=== PATIENT | female | born 1980 | race Caucasian/White ===

== ENCOUNTER 2016-11-05 07:22 | Emergency (ER) | payer OTHER ==
[2016-11-05] MEDS ORDERED: Ondansetron 4 MG/2 ML SDV IVPUSH ONE (07:47)
[2016-11-05] MEDS ORDERED: HYDROmorphone 2 MG/ML Syringe IVPUSH ONE (07:47)
[2016-11-05] MEDS ORDERED: Sodium Chloride 0.9% 10 ML Syringe FLUSH PRN (07:47)
[2016-11-05] MEDS ORDERED: Sodium Chloride 0.9% 2.5 ML Syringe FLUSH PRN (07:47)
[2016-11-05] MEDS ORDERED: Ketorolac 30 MG/ML SDV IVPUSH ONE (07:47)
[2016-11-05] MEDS ORDERED: HYDROmorphone 1 MG/ML Syringe ONE (07:53)
--- NOTE | 2016-11-05 08:03 | EDM.PDOC ---
ED HPI GENERAL MEDICAL PROBLEM - General Chief Complaint: Back Pain or Injury Stated Complaint: LOWER BACK PAIN Time Seen by Provider: 11/05/16 07:40 - History of Present Illness INITIAL COMMENTS - FREE TEXT/NARRATIVE: HISTORY AND PHYSICAL: History of present illness: Patient 36-year-old female translates her acute low back pain that occurred when she was working out yesterday this is confined to her lower back worse with movement she denies numbness weakness incontinence or retention of bowel or bladder she has not had prior episodes. Review of systems: As per history of present illness and below otherwise all systems reviewed and negative. Past medical history: As per history of present illness and as reviewed below otherwise noncontributory. Surgical history: As per history of present illness and as reviewed below otherwise noncontributory. Social history: No reported history of drug or alcohol abuse. Family history: As per history of present illness and as reviewed below otherwise noncontributory. Physical exam: HEENT: Atraumatic, normocephalic, pupils reactive, negative for conjunctival pallor or scleral icterus, mucous membranes moist, throat clear, neck supple, nontender, trachea midline. Lungs: Clear to auscultation, breath sounds equal bilaterally, chest nontender. Heart: S1S2, regular, negative for clicks, rubs, or JVD. Abdomen: Soft, nondistended, nontender. Negative for masses or hepatosplenomegaly. Negative for costovertebral tenderness. Pelvis: Stable nontender. Genitourinary: Deferred. Rectal: Deferred. Extremities: Atraumatic, negative for cords or calf pain. Neurovascular unremarkable. Neuro: Awake, alert, oriented. Cranial nerves II through XII unremarkable. Cerebellum unremarkable. Motor and sensory unremarkable throughout. Exam nonfocal. Back: Patient has tenderness to palpation in the paraspinal region and lumbosacral spine with some spasm also noted there is no vertebral body or point tenderness patient is able to stand on her toes back on her heels deep tendon reflexes motor and sensory are normal Diagnostics: None Therapeutics: Dilaudid 1 mg IV Zofran 4 mg IV Toradol 30 mg IV Impression: #1 acute lumbosacral strain Definitive disposition and diagnosis as appropriate pending reevaluation and review of above. lower back Pain Score (Numeric/FACES): 7 - Related Data Allergies Allergy/AdvReac Type Severity Reaction Status Date / Time No Known Allergies Allergy Verified 11/05/16 07:29 Home Meds: Home Meds medroxyPROGESTERone Acetate [Medroxyprogesterone Acetate] 150 injection IM ASDIRECTED 11/05/16 [History] Past Medical History HEENT History: Reports: None Cardiovascular History: Reports: None Respiratory History: Reports: None Gastrointestinal History: Reports: None Genitourinary History: Reports: None CHICK GRADER History: Reports: None Musculoskeletal History: Reports: None Neurological History: Reports: None Psychiatric History: Reports: Anxiety Endocrine/Metabolic History: Reports: None Hematologic History: Reports: None Immunologic History: Reports: None Oncologic (Cancer) History: Reports: None Dermatologic History: Reports: None - Infectious Disease History Infectious Disease History: Reports: None - Past Surgical History Female Surgical History: Reports: Breast Reconstruction Social & Family History - Family History Family Medical History: Noncontributory - Tobacco Use Smoking Status *Q: Never Smoker - Caffeine Use Caffeine Use: Reports: Coffee - Recreational Drug Use Recreational Drug Use: No ED ROS GENERAL - Review of Systems Review Of Systems: ROS reveals no pertinent complaints other than HPI. ED EXAM, GENERAL - Physical Exam Exam: See Below (See dictation) Course - Vital Signs Last Recorded V/S: Last Vital Signs Temp 36.1 C 11/05/16 07:30 Pulse 72 11/05/16 07:30 Resp 16 11/05/16 07:30 BP 137/84 11/05/16 07:30 Pulse Ox 98 11/05/16 07:30 - Orders/Labs/Meds Orders: Active Orders 24 hr Category Date Time Status Sodium Chloride 0.9% [Saline Flush] Med 11/05/16 07:47 Active 10 ml FLUSH ASDIRECTED PRN Sodium Chloride 0.9% [Saline Flush] Med 11/05/16 07:47 Active 2.5 ml FLUSH ASDIRECTED PRN Saline Lock Insert [OM.PC] Stat Oth 11/05/16 07:47 Ordered Medication Orders Sodium Chloride (Saline Flush) 10 ml FLUSH ASDIRECTED PRN PRN Reason: Keep Vein Open Last Admin: 11/05/16 07:56 Dose: 10 ml Sodium Chloride (Saline Flush) 2.5 ml FLUSH ASDIRECTED PRN PRN Reason: Keep Vein Open Last Admin: 11/05/16 07:56 Dose: 2.5 ml Meds: Medications Generic Name Dose Route Start Last Admin Trade Name Freq PRN Reason Stop Dose Admin Sodium Chloride 10 ml 11/05/16 07:47 11/05/16 07:56 Saline Flush FLUSH 10 ml ASDIRECTED PRN Administration Keep Vein Open Sodium Chloride 2.5 ml 11/05/16 07:47 11/05/16 07:56 Saline Flush FLUSH 2.5 ml ASDIRECTED PRN Administration Keep Vein Open Discontinued Medications Generic Name Dose Route Start Last Admin Trade Name Freq PRN Reason Stop Dose Admin Hydromorphone HCl 1 mg 11/05/16 07:47 11/05/16 07:56 Dilaudid IVPUSH 11/05/16 07:48 1 mg ONETIME ONE Administration Hydromorphone HCl Confirm 11/05/16 07:53 Dilaudid Administered 11/05/16 07:54 Dose 1 mg .ROUTE .STK-MED ONE Ketorolac Tromethamine 30 mg 11/05/16 07:47 11/05/16 07:55 Toradol IVPUSH 11/05/16 07:48 30 mg ONETIME ONE Administration Ondansetron HCl 4 mg 11/05/16 07:47 11/05/16 07:56 Zofran IVPUSH 11/05/16 07:48 4 mg ONETIME ONE Administration Departure - Departure Time of Disposition: 08:02 Disposition: Home, Self-Care 01 Condition: good Clinical Impression: Lumbosacral strain - Discharge Information Forms: ED Department Discharge Additional Instructions: The following information is given to patients seen in the emergency department who are being discharged to home. This information is to outline your options for follow-up care. We provide all patients seen in our emergency department with a follow-up referral. The need for follow-up, as well as the timing and circumstances, are variable depending upon the specifics of your emergency department visit. If you don't have a primary care physician on staff, we will provide you with a referral. We always advise you to contact your personal physician following an emergency department visit to inform them of the circumstance of the visit and for follow-up with them and/or the need for any referrals to a consulting specialist. The emergency department will also refer you to a specialist when appropriate. This referral assures that you have the opportunity for followup care with a specialist. All of these measure are taken in an effort to provide you with optimal care, which includes your followup. Under all circumstances we always encourage you to contact your private physician who remains a resource for coordinating your care. When calling for followup care, please make the office aware that this follow-up is from your recent emergency room visit. If for any reason you are refused follow-up, please contact the [facility] emergency department at and asked to speak to the emergency department charge nurse. Hydrocodone Medrol Anaprox Flexeril as directed follow up primary medical doctor one to 2 days return as needed as discussed - My Orders Last 24 Hours: My Active Orders 11/05/16 07:47 Sodium Chloride 0.9% [Saline Flush] 10 ml FLUSH ASDIRECTED PRN Sodium Chloride 0.9% [Saline Flush] 2.5 ml FLUSH ASDIRECTED PRN Saline Lock Insert [OM.PC] Stat - Assessment/Plan Last 24 Hours: My Active Orders 11/05/16 07:47 Sodium Chloride 0.9% [Saline Flush] 10 ml FLUSH ASDIRECTED PRN Sodium Chloride 0.9% [Saline Flush] 2.5 ml FLUSH ASDIRECTED PRN Saline Lock Insert [OM.PC] Stat
[2016-11-05 08:56] VITALS: BP 130/70
== END 2016-11-05 08:55 | disposition home or self-care (01) ==
LOC: MW.ED 07:22
DX: S39.012A Strain of muscle, fascia and tendon of lower back, initial encounter (principal); F41.9 Anxiety disorder, unspecified; X58.XXXA Exposure to other specified factors, initial encounter
CPT/HCPCS: 96374; 96375; 99283; J1170; J1885; J2405; 99284

== ENCOUNTER 2017-04-28 08:51 | Day surgery (SDC) | payer SELFPAY, OTHER ==
[~2017-04-28 08:51] MED LIST: Bupivacaine 0.25% 10 ML SDV ONE; Bupivacaine 25%/EPINEPHrine/PF 0 ML ONE; EPINEPHrine 1 MG/ML SDV ONE; Gentamicin 40 MG/ML 2 ML Vial ONE; Lidocaine 2% 5 ML SDV ONE; Midazolam 1 MG/ML 2 ML SDV ONE; Ondansetron 4 MG/2 ML SDV ONE; Propofol 200 MG/20 ML SDV ONE; Rocuronium 10 MG/ML 10 ML Syringe ONE; ceFAZolin 1 GM Vial ONE; fentaNYL 100 MCG/2 ML SDV ONE
[2017-04-28] MEDS ORDERED: Bupivacaine 0.25% 10 ML SDV INJECT ONE (09:00)
[2017-04-28] MEDS ORDERED: Acetaminophen/HYDROcodone 325-5 MG Tab PO PRN (09:00)
--- NOTE | 2017-04-28 09:32 | PCM.PREANE ---
Preanesthetic Assessment - Anesthesia/Transfusion/Family Hx Anesthesia History: Prior Anesthesia Without Reaction Family History of Anesthesia Reaction: No Transfusion History: No Prior Transfusion(s) - Review of Systems General: No Symptoms Pulmonary: No Symptoms Cardiovascular: No Symptoms Gastrointestinal: No Symptoms Neurological: No Symptoms Other: Reports: None - Physical Assessment NPO Status Date: 04/27/17 Height: 1.78 m Weight: 73.936 kg ASA Class: 1 Mental Status: Alert & Oriented x3 Airway Class: Mallampati = 2 Dentition: Reports: Normal Dentition ROM/Head Extension: Full Lungs: Clear to Auscultation, Normal Respiratory Effort Cardiovascular: Regular Rate, Regular Rhythm - Lab Values: Laboratory Last Values Urine HCG, Qual NEGATIVE (NEGATIVE) 04/28/17 08:54 - Allergies Allergies/Adverse Reactions: Allergies Allergy/AdvReac Type Severity Reaction Status Date / Time No Known Allergies Allergy Verified 11/05/16 07:29 - Anesthesia Plan Pre-Op Medication Ordered: None - Acknowledgements Anesthesia Type Planned: General Anesthesia Pt an Appropriate Candidate for the Planned Anesthesia: Yes Alternatives and Risks of Anesthesia Discussed w Pt/Guardian: Yes Pt/Guardian Understands and Agrees with Anesthesia Plan: Yes PreAnesthesia Questionnaire HEENT History: Reports: Other (See Below) Other HEENT History: wears glasses/contacts Cardiovascular History: Reports: None Respiratory History: Reports: None Gastrointestinal History: Reports: None Genitourinary History: Reports: None [employer] TECHNICIAN History: Reports: None Musculoskeletal History: Reports: None Neurological History: Reports: None Psychiatric History: Reports: Anxiety Endocrine/Metabolic History: Reports: None Hematologic History: Reports: None Immunologic History: Reports: None Oncologic (Cancer) History: Reports: None Dermatologic History: Reports: None - Infectious Disease History Infectious Disease History: Reports: None - Past Surgical History Head Surgeries/Procedures: Reports: None Female Surgical History: Reports: Breast Reconstruction - SUBSTANCE USE Smoking Status *Q: Never Smoker Recreational Drug Use History: No - HOME MEDS Home Medications: Home Meds medroxyPROGESTERone Acetate [Medroxyprogesterone Acetate] 150 injection IM ASDIRECTED 11/05/16 [History] - CURRENT (IN HOUSE) MEDS Current Meds: Current Medications Hydrocodone Bitart/Acetaminophen ([place] 325-5 Mg) 1 tab PO Q4H PRN PRN Reason: Pain Cefazolin Sodium/Dextrose 2 gm (/ Premix) 50 mls @ 100 mls/hr IV ONETIME ONE Stop: 04/28/17 10:29 Lactated Ringer's (Ringers, Lactated) 1,000 mls @ 125 mls/hr IV ASDIRECTED SIRISHA Last Admin: 04/28/17 09:26 Dose: 125 mls/hr Discontinued Medications Bacitracin (Bacitracin) Confirm Administered Dose 50,000 units .ROUTE .STK-MED ONE Stop: 04/28/17 07:45 Bupivacaine HCl (Sensorcaine-Mpf 0.25%) 30 ml INJECT ONETIME ONE Stop: 04/28/17 09:01 Bupivacaine HCl (Sensorcaine-Mpf 0.25%) Confirm Administered Dose 40 ml .ROUTE .STK-MED ONE Stop: 04/28/17 07:44 Cefazolin Sodium (Ancef) Confirm Administered Dose 1 gm .ROUTE .STK-MED ONE Stop: 04/28/17 07:45 Epinephrine HCl (Adrenalin 1:1000) Confirm Administered Dose 1 mg .ROUTE .STK- MED ONE Stop: 04/28/17 07:46 Fentanyl (Sublimaze) Confirm Administered Dose 100 mcg .ROUTE .STK-MED ONE Stop: 04/28/17 07:14 Gentamicin Sulfate (Gentamicin) Confirm Administered Dose 80 mg .ROUTE .STK-MED ONE Stop: 04/28/17 07:45 Bupivacaine HCl/Epinephrine Bitart (Sensorc Mpf 0.25%-Epi 1:[id number]) Confirm Administered Dose 30 mls @ as directed .ROUTE .STK-MED ONE Stop: 04/28/17 07:44 Lidocaine (Xylocaine-Mpf 2%) Confirm Administered Dose 5 ml .ROUTE .STK-MED ONE Stop: 04/28/17 07:14 Midazolam HCl (Versed 1 Mg/Ml) Confirm Administered Dose 2 mg .ROUTE .STK-MED ONE Stop: 04/28/17 07:14 Ondansetron HCl (Zofran) Confirm Administered Dose 4 mg .ROUTE .STK-MED ONE Stop: 04/28/17 07:14 Propofol (Diprivan 20 Ml) Confirm Administered Dose 200 mg .ROUTE .STK-MED ONE Stop: 04/28/17 07:14 Rocuronium [place] (Zemuron) Confirm Administered Dose 100 mg .ROUTE .STK-MED ONE Stop: 04/28/17 07:14
[2017-04-28] MEDS ORDERED: Succinylcholine/Normal Saline 200 MG/10 ML Syringe ONE (09:59)
[2017-04-28] MEDS ORDERED: ceFAZolin 2 GM in Premix Bag 1 BAG IV ONE (10:00)
[2017-04-28] MEDS ORDERED: Lactated Ringers 1,000 ML IV SCH (10:00)
[2017-04-28] MEDS ORDERED: HYDROmorphone 2 MG/ML Syringe ONE (10:26)
[2017-04-28] MEDS ORDERED: Dexamethasone 4 MG/ML 5 ML MDV ONE (10:29)
[2017-04-28] MEDS ORDERED: Ketorolac 30 MG/ML SDV ONE (11:01)
--- NOTE | 2017-04-28 11:34 | PCM.POSTAN ---
POST ANESTHESIA ASSESSMENT - MENTAL STATUS Mental Status: Alert, Oriented - RESPIRATORY Respiratory Status: Respiratory Rate WNL, Airway Patent, O2 Saturation Stable - CARDIOVASCULAR CV Status: Pulse Rate WNL, Blood Pressure Stable - GASTROINTESTINAL GI Status: No Symptoms - POST OP HYDRATION Hydration Status: Adequate & Stable
--- NOTE | 2017-04-28 11:47 | PCM48HPAN ---
Post Anesthesia Note - EVALUATION WITHIN 48HRS OF ANESTHETIC Vital Signs in Normal Range: Yes Patient Participated in Evaluation: Yes Respiratory Function Stable: Yes Airway Patent: Yes Cardiovascular Function Stable: Yes Hydration Status Stable: Yes Pain Control Satisfactory: Yes Nausea and Vomiting Control Satisfactory: Yes Mental Status Recovered: Yes
--- NOTE | 2017-04-28 12:33 | PCM.OPNOTE ---
- General Post-Op/Procedure Note Date of Surgery/Procedure: 04/28/17 Operative Procedure(s): bilateral breast implant exchange Pre Op Diagnosis: desire for larger breast implants Post-Op Diagnosis: Same Anesthesia Technique: General ET Tube, Local Primary Surgeon: La Saunders Needle Felt Making Machine Operator: Krystal Guerra Complications: None Condition: Good Free Text/Narrative:: Intake & Output 04/27/17 04/28/17 04/28/17 23:59 07:59 15:59 Intake Total 1400 Balance 1400
[2017-04-28 13:13] VITALS: BP 118/77
--- NOTE | 2017-04-28 20:40 | OR ---
SURGEON: BONILLA MARRUFO MD DATE OF PROCEDURE: 04/28/2017 PREOPERATIVE DIAGNOSIS: Desire for larger breast implants. POSTOPERATIVE DIAGNOSIS: Desire for larger breast implants. PROCEDURE: Bilateral breast implant exchange. STEM LEAD FORMER: ELOISE Rubio. ANESTHESIA: General ET tube with local. INDICATIONS: Ms. Howard is a 37-year-old female who desires additional size of her breast augmentation. Risks and benefits of augmentation were discussed, and she was in agreement to proceed. Risks were including, but not limited to bleeding, infection, damage to underlying or overlying structures, possible need for future interventions, and possible scarring. PROCEDURE IN DETAIL: After informed consent was obtained and placed on the chart, the patient was brought to the operating theater and laid in a supine position. After adequate general anesthetic, the area was prepped and draped and a time-out was completed to confirm side and site. Attention was then paid to dissection over the inframammary fold. After infiltration of local anesthesia, a 15 blade was used to dissect through the skin and subcutaneous tissues using Bovie electrocautery. Once the implants were reached, dissection was carried through the capsule and the previous saline implants were removed. They were approximately 300 mL implants, overfilled to about 350 mL. Once adequately removed, attention was then paid to copious irrigation, and the implant pocket was appreciated to be symmetric bilaterally and in good position. Attention was then paid to opening of the Natrelle implants, and they were opened and prepped in the normal fashion. Serial number , reference . They were prepped in a normal fashion in triple-antibiotic solution and the pocket was copiously irrigated with this as well. A Ervin funnel was used in no-touch technique to place a 520 mL Natrelle style implant into the pocket and once adequately placed in bilateral pockets, the patient was sat up, symmetry was appreciated, and then the deep layer was closed using a 3-0 Monocryl stitch and ensured safety of the implant. The dermis was closed using a 3-0 Monocryl stitch, and the skin was closed using a 4-0 Monocryl stitch in a running subcuticular fashion. This was dressed with Steri-Strips. Fluffs were then used, and a compression bra was placed over top of this. The patient tolerated the procedure well, and all counts and needles were correct at the end of the case. FOLLOWUP INSTRUCTIONS: The patient was discharged home in stable condition with a prescription for pain control. She will leave the dressings on for 24 hours and remove them and shower per usual. She will continue the compression bra for support. CLEOPATRA / VENANCIO /[id number]
== END 2017-04-28 12:10 | disposition home or self-care (01) ==
LOC: MW.SDS 08:51
PROVIDERS: ATTEND Plastic Surgery
DX: Z41.1 Encounter for cosmetic surgery (principal); F41.9 Anxiety disorder, unspecified
CPT/HCPCS: 19380; 81025; J0690; J1100; J1170; J1580; J1885; J2250; J2405; J3010; J7120; 00402; C1789; J0171; J2704